=== PATIENT | female | born 1965 | race Caucasian/White ===

== ENCOUNTER 2017-11-22 19:28 | Inpatient (IN) | payer OTHER, BC ==
[~2017-11-22] VITALS: Ht 167.6 cm; Wt 72.1 kg
[2017-11-22] MEDS ORDERED: [UNRECOGNIZED DRUG - REMARK] (19:57)
[2017-11-25] MEDS ORDERED: MEDROLPACK PO (10:15)
[2017-11-25] MEDS ORDERED: LEVAQUIN750 MG PO (10:15)
== END 2017-11-25 14:06 | disposition home or self-care (01) | DRG 192 ==
LOC: ER 19:28 → SEC-K 11-23 09:13 → SURH 11-23 09:13
PROC: 4A033R1 Measurement of Arterial Saturation, Peripheral, Percutaneous Approach (ICD-10-PCS; principal; 2017-11-23)
PROC: 3E0F7GC Introduction of Other Therapeutic Substance into Respiratory Tract, Via Natural or Artificial Opening (ICD-10-PCS; 2017-11-23)
PROC: BW24ZZZ Computerized Tomography (CT Scan) of Chest and Abdomen (ICD-10-PCS; 2017-11-23)
DX: J44.1 Chronic obstructive pulmonary disease with (acute) exacerbation (principal); E86.0 Dehydration; R09.02 Hypoxemia; F32.89 Other specified depressive episodes; E11.43 Type 2 diabetes mellitus with diabetic autonomic (poly)neuropathy; K31.84 Gastroparesis; Z79.4 Long term (current) use of insulin; E11.65 Type 2 diabetes mellitus with hyperglycemia